=== PATIENT | male | born 1975 | race Caucasian/White ===

== ENCOUNTER 2018-01-03 21:25 | Outpatient (REF) | payer OTHER, SELFPAY ==
[2018-01-03 23:16] LABS: ALT 135 U/L (12-78); AST 63 U/L (15-37); Albumin 4.3 g/dL (3.4-5.0); Alkaline Phosphatase 124 U/L (46-116); Anion Gap 8.8 mmol/L (3-11); BUN 15 mg/dL (7-18); CO2 30.2 mmol/L (21.0-32.0); CREATININE 1.08 mg/dL (0.70-1.30); Calcium 9.4 mg/dL (8.5-10.1); Chloride 100 mmol/L (98-107); Cholesterol 228 mg/dL (50-200); Glucose 134 mg/dL (70-100); HDL Cholesterol 25 mg/dL (40-60); LDL CHOLESTEROL 129 mg/dL (<100); Potassium 4.5 mmol/L (3.5-5.1); Sodium 139 mmol/L (136-145); Total Protein 8.2 g/dL (6.4-8.2); Triglyceride 500 mg/dL (30-150)
== END 2018-01-03 21:45 ==
LOC: NCHCN 21:25
PROVIDERS: PCP Internal Medicine; Visit Provider Internal Medicine
DX: E11.9 Type 2 diabetes mellitus without complications (principal); I10 Essential (primary) hypertension; K76.0 Fatty (change of) liver, not elsewhere classified; E66.9 Obesity, unspecified
CPT/HCPCS: 80053; 80061; 83721

== ENCOUNTER 2019-01-17 07:59 | Outpatient (REF) | payer OTHER, SELFPAY ==
[2019-01-17 21:35] LABS: COMMENT (LAB VIEW ONLY) 129.48 mg/dL; Microalb ug/mg Crea 4.9 ug/mg Cr
[2019-01-17 21:36] LABS: Anion Gap 10.3 mmol/L (3-11); BUN 19 mg/dL (7-18); CO2 28.7 mmol/L (21.0-32.0); CREATININE 1.02 mg/dL (0.70-1.30); Calcium 9.4 mg/dL (8.5-10.1); Calculated LDL 46 mg/dL; Chloride 99 mmol/L (98-107); Cholesterol 125 mg/dL (50-200); Glucose 137 mg/dL (70-100); HDL Cholesterol 29 mg/dL (40-60); Potassium 4.4 mmol/L (3.5-5.1); Sodium 138 mmol/L (136-145); Triglyceride 250 mg/dL (30-150)
[2019-01-17 22:08] LABS: Hemoglobin A1C 7.5 % (4.5-6.2)
== END 2019-01-17 08:19 ==
LOC: NCHCN 07:59
PROVIDERS: Internal Medicine; PCP Internal Medicine; Visit Provider Internal Medicine
DX: E11.9 Type 2 diabetes mellitus without complications (principal); I10 Essential (primary) hypertension; E66.9 Obesity, unspecified
CPT/HCPCS: 80048; 80061; 82043; 82570; 83036

== ENCOUNTER 2019-01-23 13:02 | Outpatient (REF) | payer OTHER, SELFPAY ==
[2019-01-23 21:52] LABS: ALT 68 U/L (16-63); AST 33 U/L (15-37); Albumin 4.2 g/dL (3.4-5.0); Alkaline Phosphatase 95 U/L (46-116); Bilirubin, Total 1.1 mg/dL (0.2-1.0); Total Protein 7.6 g/dL (6.4-8.2)
== END 2019-01-23 13:22 ==
LOC: NCHCO 13:02
PROVIDERS: PCP Internal Medicine; Visit Provider Internal Medicine
DX: R94.7 Abnormal results of other endocrine function studies (principal)
CPT/HCPCS: 80076

== ENCOUNTER 2019-07-28 11:04 | Outpatient (REF) | payer OTHER, SELFPAY ==
[2019-07-28 20:55] LABS: Anion Gap 5.5 mmol/L (3-11); BUN 17 mg/dL (7-18); CO2 30.5 mmol/L (21.0-32.0); CREATININE 1.08 mg/dL (0.70-1.30); Calcium 9.3 mg/dL (8.5-10.1); Chloride 103 mmol/L (98-107); Glucose 253 mg/dL (74-106); Potassium 5.1 mmol/L (3.5-5.1); Sodium 139 mmol/L (136-145)
[2019-07-28 21:02] LABS: Hemoglobin A1C 6.7 % (3.8-5.6)
== END 2019-07-28 11:24 ==
LOC: NCHCN 11:04
PROVIDERS: PCP Nurse Practitioner Family; Visit Provider Nurse Practitioner Family
DX: E11.9 Type 2 diabetes mellitus without complications (principal); I10 Essential (primary) hypertension; E66.9 Obesity, unspecified
CPT/HCPCS: 80048; 83036

== ENCOUNTER 2020-08-30 08:20 | Outpatient (REF) | payer OTHER, SELFPAY ==
[2020-08-30 14:12] LABS: ALT 63 U/L (16-63); AST 26 U/L (15-37); Albumin 4.4 g/dL (3.4-5.0); Alkaline Phosphatase 91 U/L (46-116); Anion Gap 8.7 mmol/L (3-11); BUN 17 mg/dL (7-18); Bilirubin, Total 1.2 mg/dL (0.2-1.0); CO2 29.3 mmol/L (21.0-32.0); Calcium 9.7 mg/dL (8.5-10.1); Chloride 101 mmol/L (98-107); Cholesterol 221 mg/dL (<200); Glucose 115 mg/dL (74-106); HDL Cholesterol 24 mg/dL (40-60); Potassium 4.9 mmol/L (3.5-5.1); Sodium 139 mmol/L (136-145); Total Protein 8.1 g/dL (6.4-8.2); Triglyceride 640 mg/dL (<150)
[2020-08-30 14:30] LABS: LDL CHOLESTEROL 105 mg/dL (<100)
[2020-08-30 14:50] LABS: Hemoglobin A1C 6.7 % (<5.7)
== END 2020-08-30 08:21 | disposition home or self-care (01) ==
LOC: NCHCN 08:20
PROVIDERS: PCP Nurse Practitioner Family; Visit Provider Internal Medicine
DX: E11.9 Type 2 diabetes mellitus without complications (principal); K76.0 Fatty (change of) liver, not elsewhere classified; I10 Essential (primary) hypertension; E78.5 Hyperlipidemia, unspecified
CPT/HCPCS: 80053; 80061; 83721; 83036

== ENCOUNTER 2021-01-01 09:15 | Outpatient (REF) | payer OTHER, SELFPAY ==
[2021-01-01 22:09] LABS: COMMENT (LAB VIEW ONLY) 103.49 mg/dL; Microalb ug/mg Crea 6.5 ug/mg Cr
== END 2021-01-02 08:54 | disposition home or self-care (01) ==
LOC: NCHCN 09:15
PROVIDERS: PCP Nurse Practitioner Family; Referring Provider Internal Medicine; Visit Provider Internal Medicine
DX: E11.9 Type 2 diabetes mellitus without complications (principal)
CPT/HCPCS: 82043; 82570

== ENCOUNTER 2022-01-02 09:35 | Outpatient (REF) | payer OTHER, SELFPAY ==
[2022-01-02 15:00] LABS: ALT 64 U/L (16-63); AST 33 U/L (15-37); Albumin 4.4 g/dL (3.4-5.0); Alkaline Phosphatase 85 U/L (46-116); Anion Gap 7.7 mmol/L (3-11); BUN 18 mg/dL (7-18); Bilirubin, Total 1.6 mg/dL (0.2-1.0); CO2 31.3 mmol/L (21.0-32.0); Calcium 9.4 mg/dL (8.5-10.1); Calculated LDL 76 mg/dL (<100); Chloride 99 mmol/L (98-107); Cholesterol 143 mg/dL (<200); Glucose 119 mg/dL (74-106); HDL Cholesterol 35 mg/dL (40-60); Potassium 4.6 mmol/L (3.5-5.1); Sodium 138 mmol/L (136-145); Total Protein 8.2 g/dL (6.4-8.2); Triglyceride 162 mg/dL (<150)
== END 2022-01-02 09:36 | disposition home or self-care (01) ==
LOC: NCHCN 09:35
PROVIDERS: PCP Nurse Practitioner Family; Visit Provider Internal Medicine
DX: E11.9 Type 2 diabetes mellitus without complications (principal); E78.5 Hyperlipidemia, unspecified; K76.0 Fatty (change of) liver, not elsewhere classified
CPT/HCPCS: 80053; 80061; 83036

== ENCOUNTER 2022-01-09 15:56 | Outpatient (REF) | payer OTHER, SELFPAY ==
[2022-01-09 16:19] LABS: Bilirubin, Direct 0.1 mg/dL (0.0-0.2); Bilirubin, Total 0.9 mg/dL (0.2-1.0)
== END 2022-01-09 15:57 | disposition home or self-care (01) ==
LOC: NCHCN 15:56
PROVIDERS: PCP Nurse Practitioner Family; Visit Provider Internal Medicine
DX: R79.89 Other specified abnormal findings of blood chemistry (principal)
CPT/HCPCS: 80061; 82247; 82248

== ENCOUNTER 2022-07-27 12:50 | Outpatient (REF) | payer OTHER, SELFPAY ==
[2022-07-27 15:29] LABS: COMMENT (LAB VIEW ONLY) 84.45 mg/dL; Microalb ug/mg Crea 3.6 ug/mg Cr
== END 2022-07-27 12:51 | disposition home or self-care (01) ==
LOC: NCHCN 12:50
PROVIDERS: PCP Nurse Practitioner Family; Visit Provider Internal Medicine
DX: E11.9 Type 2 diabetes mellitus without complications (principal); I10 Essential (primary) hypertension; E66.9 Obesity, unspecified; E78.5 Hyperlipidemia, unspecified; K76.0 Fatty (change of) liver, not elsewhere classified
CPT/HCPCS: 82043; 82570

== ENCOUNTER 2022-10-29 09:25 | Outpatient (REF) | payer OTHER, SELFPAY ==
[2022-10-29 15:17] LABS: HCT 46.9 % (40.0-50.0); HGB 15.3 g/dL (13.5-17.5); MCH 29.9 pg (27.0-33.0); MCHC 32.6 % (32.0-36.0); MCV 92 fL (80-95); MPV 9.3 fL (8.0-11.0); Platelet Count 245 10^3/uL (130-400); RBC 5.12 10^6/uL (4.36-5.78); RDW 12.7 % (11.8-14.1); RDW-SD 43.4 fL; WBC 6.61 10^3/uL (4.4-10.8)
[2022-10-29 15:46] LABS: Hemoglobin A1C 7.1 % (<5.7)
[2022-10-29 16:36] LABS: ALT 67 U/L (16-63); AST 36 U/L (15-37); Alkaline Phosphatase 91 U/L (46-116); BUN 15 mg/dL (7-18); Bilirubin, Total 0.9 mg/dL (0.2-1.0); Calcium 9.2 mg/dL (8.5-10.1); Calculated LDL 116 mg/dL (<100); Chloride 103 mmol/L (98-107); Cholesterol 185 mg/dL (<200); Estimated GFR 93.42 (mL/min/1.73m2); Glucose 121 mg/dL (74-106); HDL Cholesterol 28 mg/dL (40-60); Potassium 4.5 mmol/L (3.5-5.1); Sodium 140 mmol/L (136-145); Total Protein 7.8 g/dL (6.4-8.2); Triglyceride 209 mg/dL (<150)
== END 2022-10-29 09:26 | disposition home or self-care (01) ==
LOC: NCHCN 09:25
PROVIDERS: PCP Nurse Practitioner Family; Visit Provider Internal Medicine
DX: I10 Essential (primary) hypertension (principal); E11.9 Type 2 diabetes mellitus without complications; K76.0 Fatty (change of) liver, not elsewhere classified; E78.5 Hyperlipidemia, unspecified
CPT/HCPCS: 80053; 80061; 85027; 83036

== ENCOUNTER 2023-08-13 14:09 | Outpatient (REF) | payer OTHER, SELFPAY ==
[2023-08-13 15:22] LABS: COMMENT (LAB VIEW ONLY) 73.63 mg/dL
== END 2023-08-13 14:10 | disposition home or self-care (01) ==
LOC: NCHCN 14:09
PROVIDERS: PCP Nurse Practitioner Family; Visit Provider Internal Medicine
DX: E11.9 Type 2 diabetes mellitus without complications (principal)
CPT/HCPCS: 82043; 82570

== ENCOUNTER 2023-10-27 19:33 | Outpatient (REF) | payer OTHER, SELFPAY ==
[2023-10-27 16:04] LABS: HGB 17.4 g/dL (13.5-17.5); MCH 30.1 pg (27.0-33.0); MCHC 32.8 % (32.0-36.0); MCV 92 fL (80-95); MPV 9.9 fL (8.0-11.0); Platelet Count 244 10^3/uL (130-400); RBC 5.78 10^6/uL (4.36-5.78); RDW 13.1 % (11.8-14.1); RDW-SD 44.1 fL
[2023-10-27 16:50] LABS: ALT 92 U/L (16-63); AST 48 U/L (15-37); Albumin 4.4 g/dL (3.4-5.0); Alkaline Phosphatase 114 U/L (46-116); Anion Gap 8.8 mmol/L (3-11); BUN 17 mg/dL (7-18); Bilirubin, Total 1.48 mg/dL (0.2-1.0); CO2 29.2 mmol/L (21.0-32.0); CREATININE 1.1 mg/dL (0.70-1.30); Calcium 9.6 mg/dL (8.5-10.1); Chloride 100 mmol/L (98-107); Cholesterol 239 mg/dL (<200); Estimated GFR 82.81 (mL/min/1.73m2); Glucose 155 mg/dL (74-106); HDL Cholesterol 29 mg/dL (40-60); Potassium 4.7 mmol/L (3.5-5.1); Sodium 138 mmol/L (136-145); Total Protein 8.2 g/dL (6.4-8.2); Triglyceride 602 mg/dL (<150)
[2023-10-27 17:06] LABS: LDL CHOLESTEROL 104 mg/dL (<100)
[2023-10-27 17:10] LABS: Hemoglobin A1C 8.7 % (<5.7)
== END 2023-10-27 19:34 | disposition home or self-care (01) ==
LOC: NCHCN 19:33
PROVIDERS: PCP Nurse Practitioner Family; Visit Provider Internal Medicine
DX: E11.9 Type 2 diabetes mellitus without complications (principal); E78.5 Hyperlipidemia, unspecified; K76.0 Fatty (change of) liver, not elsewhere classified
CPT/HCPCS: 80053; 80061; 83721; 85027; 83036

== ENCOUNTER 2024-02-04 08:59 | Outpatient (REF) | payer OTHER, SELFPAY ==
[2024-02-04 15:20] LABS: Hemoglobin A1C 8.1 % (<5.7)
[2024-02-04 15:21] LABS: Cholesterol 190 mg/dL (<200); HDL Cholesterol 30 mg/dL (40-60); Triglyceride 470 mg/dL (<150)
[2024-02-04 15:38] LABS: LDL CHOLESTEROL 93 mg/dL (<100)
== END 2024-02-04 09:00 | disposition home or self-care (01) ==
LOC: NCHCN 08:59
PROVIDERS: PCP Nurse Practitioner Family; Visit Provider Internal Medicine
DX: E11.9 Type 2 diabetes mellitus without complications (principal); E78.2 Mixed hyperlipidemia
CPT/HCPCS: 80061; 83721; 83036

== ENCOUNTER 2024-05-05 16:59 | Outpatient (REF) | payer OTHER, SELFPAY ==
[2024-05-05 14:23] LABS: Hemoglobin A1C 7.4 % (<5.7)
[2024-05-05 14:40] LABS: ALT 52 U/L (16-63); AST 39 U/L (15-37); Albumin 4.2 g/dL (3.4-5.0); Alkaline Phosphatase 84 U/L (46-116); BUN 21 mg/dL (7-18); Bilirubin, Total 1.17 mg/dL (0.2-1.0); CREATININE 1.1 mg/dL (0.70-1.30); Calcium 9.5 mg/dL (8.5-10.1); Calculated LDL 25 mg/dL (<100); Chloride 103 mmol/L (98-107); Cholesterol 89 mg/dL (<200); Estimated GFR 82.29 (mL/min/1.73m2); Glucose 122 mg/dL (74-106); HDL Cholesterol 35 mg/dL (40-60); Potassium 4.8 mmol/L (3.5-5.1); Sodium 139 mmol/L (136-145); Total Protein 7.9 g/dL (6.4-8.2); Triglyceride 149 mg/dL (<150)
[2024-05-08 12:02] LABS: IgA 304 mg/dL (85-499); Interpretation (See Note); Tissue Transglutaminase IgA <4.0 CU (<20.0)
== END 2024-05-05 17:00 | disposition home or self-care (01) ==
LOC: NCHCN 16:59
PROVIDERS: PCP Nurse Practitioner Family; Visit Provider Internal Medicine
DX: K76.0 Fatty (change of) liver, not elsewhere classified (principal); E78.5 Hyperlipidemia, unspecified; R14.3 Flatulence
CPT/HCPCS: 80053; 80061; 82784; 83516; 83036

== ENCOUNTER 2024-08-14 19:10 | Outpatient (REF) | payer OTHER, SELFPAY ==
[2024-08-14 17:33] LABS: COMMENT (LAB VIEW ONLY) 70.73 mg/dL; Microalb ug/mg Crea 7.4 ug/mg Cr
== END 2024-08-14 19:11 | disposition home or self-care (01) ==
LOC: NCHCN 19:10
PROVIDERS: PCP Nurse Practitioner Family; Visit Provider Internal Medicine
DX: E11.9 Type 2 diabetes mellitus without complications (principal)
CPT/HCPCS: 82043; 82570

== ENCOUNTER 2024-10-05 18:06 | Outpatient (REF) | payer OTHER, SELFPAY ==
[2024-10-05 20:40] LABS: Abs Immature Grans 0.05 10^3/uL (0.0-0.06); Absolute Basophil Count 0.05 10^3/uL (0.0-0.2); Absolute Eosinophil Count 0.08 10^3/uL (0.0-0.7); Absolute Lymphocyte Count 2.64 10^3/uL (1.2-3.4); Absolute Monocyte Count 0.59 10^3/uL (0.1-0.8); Absolute Neutrophil Count 4.91 10^3/uL (1.2-6.7); Basophils % 0.6 %; HCT 52.6 % (40.0-50.0); HGB 17.1 g/dL (13.5-17.5); Immature Grans % 0.6 %; Lymphocytes % 31.7 %; MCH 29.4 pg (27.0-33.0); MCHC 32.5 % (32.0-36.0); MCV 91 fL (80-95); MPV 9.9 fL (8.0-11.0); Monocytes % 7.1 %; Platelet Count 202 10^3/uL (130-400); RBC 5.81 10^6/uL (4.36-5.78); RDW 13.1 % (11.8-14.1); RDW-SD 43.8 fL; WBC 8.32 10^3/uL (4.4-10.8)
[2024-10-05 21:01] LABS: ALT 51 U/L (16-63); AST 31 U/L (15-37); Albumin 4.5 g/dL (3.4-5.0); Alkaline Phosphatase 96 U/L (46-116); Anion Gap 6.4 mmol/L (3-11); BUN 18 mg/dL (7-18); Bilirubin, Total 1.2 mg/dL (0.2-1.0); CO2 30.6 mmol/L (21.0-32.0); Calcium 9.7 mg/dL (8.5-10.1); Chloride 101 mmol/L (98-107); Estimated GFR 92.26 (mL/min/1.73m2); Glucose 167 mg/dL (74-106); Potassium 4.8 mmol/L (3.5-5.1); Sodium 138 mmol/L (136-145); Total Protein 8.2 g/dL (6.4-8.2)
== END 2024-10-05 18:07 | disposition home or self-care (01) ==
LOC: NCHCN 18:06
PROVIDERS: PCP Nurse Practitioner Family; Visit Provider Internal Medicine
DX: R10.9 Unspecified abdominal pain (principal)
CPT/HCPCS: 80053; 85025

== ENCOUNTER 2024-12-25 06:01 | Day surgery (SDC) | payer OTHER, SELFPAY ==
[2024-12-25] VITALS (47 sets, daily range): BP systolic 92–132; BP diastolic 53–93; PULSE 60–80; RESP 10–29; TEMP 36.1–36.4; O2SAT 87–99; BMI 35.0
[2024-12-25] MEDS: Lactated Ringers 1,000 ML 80 ML IV (06:53)
--- NOTE | 2024-12-25 07:10 | W.ANESPRE ---
General Info Date of Service Date Performed: 12/25/24 Height: 5 ft 5 in Weight: 95.5 kg Body Mass Index (BMI): 35.0 Surgical Procedure: Operation Date: 12/25/24 07:40 Proposed Procedure Side Surgeon p Hernia Umbilical Laparoscopic w/Mesh Juliet Pardo MD Actual Procedure Side Surgeon p Hernia Umbilical Laparoscopic w/Mesh Juliet Pardo MD Pre-Op Diagnosis Post-Op Diagnosis Umbilical hernia Meds Allergies and Home Medications Allergies Allergy/AdvReac Type Severity Reaction Status Date / Time No Known Allergies Allergy Verified 12/25/24 06:25 Home Medication ?Medication ?Instructions ?Recorded empagliflozin 25 mg tablet 25 mg PO DAILY 10/10/24 (Jardiance) lisinopril 10 mg tablet 10 mg PO DAILY 10/10/24 metformin 500 mg tablet 1,000 mg PO DAILY 10/10/24 omega-3 fatty acids 1,000 mg 1,000 mg PO BID 10/10/24 capsule rosuvastatin 20 mg tablet 20 mg PO DAILY 10/10/24 semaglutide 1 mg/dose (4 mg/3 mL) 1 mg subcut QWEEK 10/10/24 subcutaneous pen injector (Ozempic) hydrocodone 5 mg-acetaminophen 325 1 tab PO Q6H PRN pain #18 tabs 12/25/24 mg tablet ibuprofen 800 mg tablet 800 mg PO TID PRN #21 tabs 12/25/24 Current Visit Medications: Current Medications Generic Name Dose Route Start Last Admin Trade Name Freq PRN Reason Stop Dose Admin Ringer's Solution 1,000 mls @ 80 mls/hr 12/25/24 06:00 12/25/24 06:53 IV 01/21/25 23:59 80 mls/hr INFUSION MUNDO Administration Cefazolin Sodium/Dextrose 2 gm in 50 mls @ 100 mls/hr 12/25/24 06:00 Ancef Duplex IVPB 01/21/25 23:59 PREOP MUNDO IV Miscellaneous Supplies 1 each 12/25/24 06:00 Iv Access IV 01/21/25 23:59 DIRECTED MUNDO Sodium Chloride 0 ml 12/25/24 06:00 Normal Saline Flush 10 Ml Syr IV 01/21/25 23:59 PRN PRN Sodium Chloride 0 ml 12/25/24 06:00 Normal Saline 10 Ml Vial IJ 01/21/25 23:59 DIRECTED PRN Sterile Water 0 ml 12/25/24 06:00 Water,Injection,Sterile 10 Ml Vial IJ 01/21/25 23:59 DIRECTED PRN PFSH Active Problems Active Problems: Problem Status Onset Code Obesity Chronic E66.9 Umbilical hernia Acute K42.9 Medical History Medical History Kidney stone Metabolic dysfunction-associated steatotic liver disease (MASLD) Allergic rhinitis Essential hypertension ABDI (obstructive sleep apnea) CPAP Type II diabetes mellitus Verruca vulgaris Tobacco Smoking/Tobacco Use Status: Former Tobacco Use Alcohol Alcohol Intake: current Alcohol intake frequency: a few times a month Substance Use Substance use: Never Substance use type: does not use Vital Signs and Lab Results Vital Signs Most Recent Vital Signs in EMR: Most Recent Vital Signs Temp Pulse Resp BP Pulse Ox 36.3 C L 73 17 121/93 H 99 12/25/24 06:16 12/25/24 06:16 12/25/24 06:16 12/25/24 06:16 12/25/24 06:16 Point of Care Results Point of Care Results: Finger Stick Blood Glucose 121 12/25/24 06:13 Anesthesia Assessment and Plan Anesthesia History Personal History: No History of Anesthesia Complications Family History: No Family History of Anesthesia Complications Exercise Tolerance Exercise Tolerance: Metabolic Equivalents>4 Pertinent Negatives Pertinent Negatives: No Symptoms of GERD, No Major Pulmonary Symptoms or Complaints and No History of CVA/TIA Cardiac & Pulmonary Exam Cardiac Exam: Normal S1/S2 Heart Sounds Pulmonary Exam: Clear Bilateral Breath Sounds Cardiac and Pulmonary Comment:: Chest pain years ago but worked up and negative Implantable Cardiac Device Does patient have a Pacemaker or an ICD?: No Airway Exam Known Difficult Airway: No Mallampati Class: 2 Mouth Opening: Normal (> 3cm) Thyromental Distance: Greater than 3 cm Neck Range of Motion: Full ROM Neck Circumference: Thick Teeth Condition: Normal Dentition Tooth Numbering:  1. Missing Airway Comments: [place] teeth removed ASA Classification ASA Score: ASA 2 Emergency Case?: No NPO Status NPO Status: NPO Clears >2 hours, Solids >8 hours Anesthesia Plan Resuscitation Status: Full Code Anesthesia Technique: General Anesthesia Airway Planned: Endotracheal Tube Monitors Used: Standard Monitors Preoperative Comments:: Patient stopped all daily medications on and stopped Ozempic three weeks ago. Stomach feels empty today
--- NOTE | 2024-12-25 07:22 | PDOC.DSDIS_ITS ---
Date of service: 12/25/24 Discharge Plan Disposition Patient Disposition: Home Condition: Stable Discharge Details Reason For Visit: Umbilical hernia repair with mesh Attending Provider: Juliet Pardo Primary Care Provider: Valeria Riley Recommendations for Follow Up Recommended tests to be ordered by follow up provider: None Home Meds and New Rx's Prescriptions: New hydrocodone-acetaminophen 5-325 mg tablet 1 tab PO Q6H PRN (Reason: pain) Qty: 18 0RF ibuprofen 800 mg tablet 800 mg PO TID PRNQty: 21 0RF Continued metformin 500 mg tablet 1,000 mg PO DAILY omega-3 fatty acids 1,000 mg capsule 1,000 mg PO BID lisinopril 10 mg tablet 10 mg PO DAILY rosuvastatin 20 mg tablet 20 mg PO DAILY Jardiance 25 mg tablet 25 mg PO DAILY Ozempic 1 mg/dose (4 mg/3 mL) pen injector 1 mg subcut QWEEK Discharge Instructions Additional Instructions: Shower in 24 hours. Wash gently over skin glue with soapy hands, rinse, pat dry. Don't peel glue or submerge incisions under water. Do not clean the glue with rubbing alcohol or any solvents beyond your regular soap/body wash and water. The glue will start to come off on its own in about 2 weeks. Ok to walk, climb stairs, and resume normal activities of daily living. Do not lift/push/pull more than 20lb for 4 weeks. Do not exercise until cleared by surgeon in office. Monitor yourself for constipation during recovery. Add a stool softener or laxative if no BM within 36 hours. Use ibuprofen along with or instead of prescribed pain medicine. It will help with pain if you take the two together. Call or return for fever or incisional problems Stand Alone Forms: Anesthesia Discharge Inst., [facility] Powers ([facility]) Referrals: Juliet Pardo MD [ [facility] STAFF PHYSICIAN, Surgery] - 01/03/25 8:30 am Activity:: See instructions. Shower/Bathe:: 24 hours Diet:: As Tolerated DS: Diagnosis Discharge Diagnosis (1) Umbilical hernia: Status: Acute Asessment and Plan: Repaired today
--- NOTE | 2024-12-25 07:25 | W.PM.HP.N ---
Date of service: 12/25/24 Time of Service: 07:25 Assessment and Plan Assessment and plan (1) Umbilical hernia: Status: Acute Assessment and plan: reducible umbilical hernia, plan to proceed with repair withmesh today. Discussed surgery risks, benefits, alternatives and expectations. I was clear about recurrence risk being higher for obese diabetics, and emphasized the need for strict activity restriction post op, he verbalized understanding. Proceed as planned. History of Present Illness History of Present Illness Chief Complaint: Hernia repair Narrative: This is a 49-year-old male with an umbilical hernia. The hernia has been present for years however since he has begun to lose weight it has become more noticeable. He has instances where the hernia pops out and is painful. There is discomfort or bloating in the abdomen at times. There is tenderness around the hernia and he at times has to reduce it. The visible appearance of the hernia has changed over time it has slightly increased in size compared to when he first noticed it years ago. Before the weight loss the hernia did not become symptomatic. Since he has lost weight he feels it can be quite painful and changes size in and out depending on his position or level of activity. Reducing the hernia or resting can make the pain ease up. Patient is a diabetic he states he has good control over his diabetes. He is on injectable medications for diabetes and has been able to lose weight and get good control. Discussed repair in office and he is here today for surgery. Review of Systems All systems reviewed & are unremarkable except as noted in HPI and below PFSH All Active Problems Obesity (Chronic) Umbilical hernia (Acute) Medical History Kidney stone Metabolic dysfunction-associated steatotic liver disease (MASLD) Allergic rhinitis Essential hypertension ABDI (obstructive sleep apnea) CPAP Type II diabetes mellitus Verruca vulgaris Social History Smoking/Tobacco Use Status: Former Tobacco Use Smoking risk assessment performed?: Yes Alcohol Intake: current Alcohol Intake frequency: a few times a month Drug use: Never Substance use type: does not use Housing: house Current gender identity: male Do you feel safe at home: Yes Do you feel safe in your relationship?: Yes Meds Allergies and Home Medications Allergies Allergy/AdvReac Type Severity Reaction Status Date / Time No Known Allergies Allergy Verified 12/25/24 06:25 Home Medications ?Medication ?Instructions ?Recorded ?Confirmed ?Type empagliflozin 25 mg tablet 25 mg PO DAILY 10/10/24 12/22/24 History (Jardiance) lisinopril 10 mg tablet 10 mg PO DAILY 10/10/24 12/25/24 History metformin 500 mg tablet 1,000 mg PO DAILY 10/10/24 12/25/24 History omega-3 fatty acids 1,000 mg 1,000 mg PO BID 10/10/24 12/25/24 History capsule rosuvastatin 20 mg tablet 20 mg PO DAILY 10/10/24 12/25/24 History semaglutide 1 mg/dose (4 mg/3 mL) 1 mg subcut QWEEK 10/10/24 12/22/24 History subcutaneous pen injector (Ozempic) hydrocodone 5 mg-acetaminophen 325 1 tab PO Q6H PRN pain #18 tabs 12/25/24 Rx mg tablet ibuprofen 800 mg tablet 800 mg PO TID PRN #21 tabs 12/25/24 Rx Exam Narrative Exam Narrative: awake, NAD eomi, MMM midline trachea, neck is symmetric PULM: normal resp effort, equal chest rise with respiration, no wheezing audible CARDIAC: normal PMI, no jvd, regular rate, normal perfusion abdomen is nondistended, umbilical hernia is reducible and nontender extremities are without deformity, normal movement of all four extremities speech is clear and coherent mood and affect are congruent, no focal neurological deficits skin without rash Results Last Vital Signs Temp 97.3 F L 12/25/24 06:16 Pulse 73 12/25/24 06:16 Resp 17 12/25/24 06:16 BP 121/93 H 12/25/24 06:16 Pulse Ox 99 12/25/24 06:16 Time Spent Time spent with Patient: <40 minutes Time was spent: preparing to see the patient(eg.review tests) and counseling the patient
[2024-12-25] MEDS: ceFAZolin 2 GM/50 ML BAG IVPB (08:01)
[2024-12-25] MEDS: Bupivacaine 0.5% Pres-Free W/EPI 30 ML VIAL (08:26)
[2024-12-25] MEDS: Albuterol/Ipratropium 3 ML UPD VIAL UPD (09:45)
[2024-12-25] MEDS: HYDROmorphone 2 MG/ML SYR IVP ×5 (10:13→11:06)
--- NOTE | 2024-12-25 10:21 | ROE_ITS ---
Operative Note Operative Note PRE-OP DIAGNOSIS: Umbilical hernia POST-OP DIAGNOSIS: same PROCEDURE: Laparoscopic umbilical hernia repair with mesh SURGEON: Juliet Pardo [employer] MEMBER: Delroy Smith ANESTHESIA TYPE: Local By Surgeon and General LMA/ETT Refer to Anesthesia Record ESTIMATED BLOOD LOSS: 10 PATHOLOGY: none sent COMPLICATIONS: None Implants: 4.[address] mesh Procedure Description: This is a 49-year-old patient who was seen in the office for umbilical hernia with symptoms. Repair was indicated. We discussed a laparoscopic approach to repairing the umbilical hernia. The procedure risks and benefits and alternatives and expectations were reviewed. Informed consent was obtained. The patient was transferred to the operating room on the day of surgery. He was placed supine on the operating table. SCDs were placed at all pressure points were padded appropriately. The abdomen was clipped prepped and draped in the usual sterile fashion and Ioban was used. Timeout was performed. Preoperative antibiotics were administered prophylactically. A Veress needle was used to access the abdominal cavity from the left upper quadrant. Saline drop test confirmed abdominal placement and the abdomen was insufflated to 15 mmHg. A 5 mm port was placed in the left lower quadrant using the Optiview method. 2 additional 5 mm ports were placed under direct visualization, 1 in the right abdomen and 1 in the left upper quadrant. No injury to the intra- abdominal organs was seen at the various site. The Veress needle was removed. The umbilical hernia was visualized and there was omentum adherent to the peritoneum around it. The contents were not incarcerated. LigaSure device was used to take down the peritoneal omental adhesions and freed the omentum from the defect. Graspers and LigaSure device were used to pull small fatty contents from within the hernia and to take down the hernia sac. The small fatty contents and sac were pulled from the abdomen and discarded the hernia defect was measured to be 2 cm round. A 4.[address] mesh was selected for the repair. Mesh placement was planned on the abdominal wall. Sutures were placed at the cardinal points on the mesh, 2-0 Prolene suture was used. The mesh was then rolled and introduced into the abdomen through the right sided abdominal port site. In the abdomen, the mesh was unrolled and positioned appropriately for fixation to the abdominal wall. Small punctures were made at premeasured sites on the anterior abdominal wall and a Ron Gonzalez suture grasper was used to grab the Prolene suture tails and pulled them up through the muscle. This was done in all 4 cardinal points of the mesh through the abdominal wall. The mesh was tied down and secured. Next an absorbable tacker was used to tack the mesh to the peritoneum circumferentially. The mesh lay in good position over the hernia defect with generous overlap of the defect. The abdomen was desufflated after hemostasis was confirmed. The abdomen was washed and dried. The port sites were closed with 4-0 Monocryl suture in a subcuticular fashion. Skin glue was placed over the port sites and suture passer sites in veress site. All sponge and instrument counts were correct at the end of the case. The patient tolerated the procedure well. He extubated in the operating room and transferred to the recovery room in stable condition. No complications Date of Procedure: 12/25/24
[2024-12-25] MEDS: fentaNYL 100 MCG/2 ML VIAL IVP ×2 (10:47→10:58)
--- NOTE | 2024-12-25 11:12 | W.ANESPOSTOP ---
Postoperative Evaluation Date, Time and Location Date Performed: 12/25/24 Time Performed: 11:12 Patient Location: PACU Vital Signs Most Recent Imported Vital Signs: Most Recent Vital Signs Temp Pulse Resp BP Pulse Ox 36.4 C L 69 14 130/83 98 12/25/24 10:55 12/25/24 11:00 12/25/24 11:00 12/25/24 10:55 12/25/24 11:00 Pain Score Most Recent Pain Score: Most Recent Pain Score Pain Level 5 12/25/24 11:08 Assessment Mental Status: Awake (Alert & Oriented to Patient Baseline) Airway and Respiratory Function: Patent airway with normal (patient baseline) respiratory exam Cardiovascular Function: Hemodynamically Stable Hydration Status: Adequately Hydrated Nausea & Vomiting: No Nausea or Vomiting Pain: Pain is Moderate or Severe Postoperative Pain Management: Pain being addressed with medication Peripheral Nerve Block: Patient did not receive a nerve block
[2024-12-25] MEDS: HYDROcodone 5/Acetaminophen 325 TAB PO (12:03)
== END 2024-12-25 12:50 | disposition home or self-care (01) ==
PROVIDERS: PCP Internal Medicine; Visit Provider Surgery
PROC: (CPT 49650; principal; 2024-12-25 07:30)
DX: K42.9 Umbilical hernia without obstruction or gangrene (principal)
CPT/HCPCS: 49591; C1781; J0131; J0666; J0690; J1100; J1171; J2003; J2250; J2405; J2704; J3010; J3475; J7620